=== PATIENT | male | born 1975 | race Caucasian/White ===

== ENCOUNTER 2016-10-07 00:24 | Inpatient (IN) | payer SELFPAY ==
[2016-10-07] VITALS (11 sets, daily range): BP systolic 102–147; BP diastolic 60–94; PULSE 65–86; RESP 16–24; TEMP 96.5–98.3; O2SAT 94–100
[~2016-10-07] VITALS: Ht 177.8 cm; Wt 80.0 kg
[2016-10-07] MEDS ORDERED: SODIUM CHLOR 0.9% 1000 ML INJ 1,000 ML IV SCH (01:14)
[2016-10-07] MEDS ORDERED: SODIUM CHLORIDE 0.9% FLUSH 5 ML FLUSH IVF PRN (01:15)
[2016-10-07] MEDS ORDERED: HYDROmorphone HCL PF 1 MG/ML VIAL IVS ONE (01:15)
[2016-10-07] MEDS ORDERED: ONDANSETRON HCL 4 MG/2 ML VIAL IVP ONE (01:15)
[2016-10-07] MEDS ORDERED: IOHEXOL 350 MG/ML 10 ML VIAL (for RAD DIAG) IV ONE (01:30)
[2016-10-07 01:37] LABS: AUTOMATED NEUTROPHIL # 7.4 TH/MM3 (1.8-7.7); BASOPHIL % 0.3 % (0.0-2.0); EOSINOPHIL % 0.5 % (0.0-4.0); HEMATOCRIT 46.7 % (39.0-51.0); HEMO FLAGS DIFF FINAL; LYMPH % 11.2 % (9.0-44.0); MEAN CELL VOLUME 87.4 FL (80.0-100.0); MEAN CORPUSCULAR HEMOGLOBIN 31.2 PG (27.0-34.0); MEAN CORPUSCULAR HGB CONC 35.6 % (32.0-36.0); MONO % 6.2 % (0.0-8.0); NEUT % 81.8 % (16.0-70.0); PLATELET COUNT 256 TH/MM3 (150-450); RED BLOOD COUNT 5.35 MIL/MM3 (4.50-5.90); RED CELL DISTRIBUTION WIDTH 12.8 % (11.6-17.2); WHITE BLOOD COUNT 9.1 TH/MM3 (4.0-11.0)
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
[2016-10-07 01:47] LABS: PROTHROMBIN TIME - PATIENT 10.7 SEC (9.8-11.6)
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
[2016-10-07 02:06] LABS: ALT (GPT) 50 U/L (12-78); ANION GAP 9 MEQ/L (5-15); AST (GOT) 33 U/L (15-37); BICARBONATE 25.9 MEQ/L (21.0-32.0); BLOOD UREA NITROGEN 15 MG/DL (7-18); CHLORIDE 102 MEQ/L (98-107); GLOMERULAR FILTRATION RATE 74 ML/MIN (>89); POTASSIUM 3.9 MEQ/L (3.5-5.1); SODIUM (NA) 137 MEQ/L (136-145)
[2016-10-07 02:08] LABS: ALKALINE PHOSPHATASE 94 U/L (45-117); TOTAL BILIRUBIN ADULT 1.1 MG/DL (0.2-1.0)
[2016-10-07] MEDS ORDERED: HYDROmorphone HCL PF 1 MG/ML VIAL IV PUSH ONE (03:00)
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
[2016-10-07] MEDS: SODIUM CHLOR 0.9% 1000 ML INJ 1,000 ML IV SCH ×3 (03:27→23:16)
[2016-10-07] MEDS ORDERED: SODIUM CHLORIDE 0.9% FLUSH 5 ML FLUSH FLUSH PRN (03:30)
[2016-10-07] MEDS ORDERED: HYDROmorphone HCL PF 1 MG/ML VIAL IV PUSH PRN (03:30)
[2016-10-07] MEDS ORDERED: NALOXONE HCL 0.4 MG/ML AMP IV PRN (03:30)
[2016-10-07] MEDS: ONDANSETRON HCL 4 MG/2 ML VIAL IVP PRN ×2 (04:59→14:04)
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
[2016-10-07 05:15] LABS: BLOOD, URINE NEG (NEG); COMMENT (UR) CULT NOT INDICATED; CULTURE IF INDICATED CULT NOT INDICATED; GLUCOSE,URINE NEG (NEG); KETONE, URINE 40 mg/dL (NEG); MUCUS URINE FEW /lpf (OCC); NITRITE,URINE NEG (NEG); SQUAMOUS EPITHELIAL CELL URINE <1 /hpf (0-5); URINE COLOR YELLOW (YELLW/STRAW)
[2016-10-07] MEDS: HYDROmorphone HCL PF 1 MG/ML VIAL IV PUSH PRN ×2 (05:16→06:15)
--- NOTE | 2016-10-07 08:40 | HHI.PR ---
Subjective Remarks NG tube is in place. complaining of moderate to severe abdominal pain. has nausea. d/w the RN. Objective Vitals Vital Signs Date Time Temp Pulse Resp B/P Pulse Ox O2 Delivery O2 Flow Rate FiO2 10/07/16 07:15 72 18 120/70 99 10/07/16 06:05 70 20 137/86 98 Room Air 10/07/16 04:37 98.3 79 18 126/73 98 Room Air 10/07/16 03:02 81 20 142/82 98 Room Air 10/07/16 02:04 98 Room Air 10/07/16 01:04 73 24 134/94 100 Room Air 10/07/16 00:28 97.5 86 18 147/84 100 Room Air I/O 10/06/16 10/06/16 10/06/16 10/07/16 10/07/16 10/07/16 07:00 15:00 23:00 07:00 15:00 23:00 Output Total 1200 ml Balance -1200 ml Output Urine Total 450 ml Gastric Drainage Total 750 ml # Voids 1 Result Diagram: 10/07/16 0120 10/07/16 0120 Imaging Last Impressions Chest X-Ray 10/07/16113 Signed Impressions: Service Date/Time: Friday, October 07, 2016 01:13 - CONCLUSION: No acute disease. No free air beneath the diaphragm. Ravinder Seo MD Abdomen/Pelvis CT 10/07/16113 Signed Impressions: Service Date/Time: Friday, October 07, 2016 01:29 - CONCLUSION: Findings are characteristic of a small bowel obstruction. Ravinder Seo MD Objective Remarks GENERAL: in no apparent distress with NG tube in place. CARDIOVASCULAR: Regular rate and regular rhythm without murmurs, gallops, or rubs. RESPIRATORY: Clear to auscultation. Breath sounds equal bilaterally. No wheezes , rales, or rhonchi. GASTROINTESTINAL: Abdomen soft, generalized tenderness, nondistended. Normal, active bowel sounds MUSCULOSKELETAL: Extremities without clubbing, cyanosis, or edema. NEURO: Alert & Oriented x4 to person, place, time, situation. Moves all ext x4 Procedures none Medications and IVs Current Medications Ondansetron HCl 4 mg 4 mg ONCE ONCE IVP Last administered on 10/07/16t 01:27; Start 10/07/16 at 01:15; Stop 10/07/16 at 01:16; Status DC Sodium Chloride (NS 1000 ml Inj) 1,000 ml @ 1,000 mls/hr Q1H IV Last administered on 10/07/16 01:27; Start 10/07/16 at 01:14; Stop 10/07/16 at 02:13 ; Status DC IV Flush (NS Flush) 2 ml UNSCH PRN IVF FLUSH AFTER USING IV ACCESS; Start 10/07 at 01:15; Stop 10/07/16 at 03:23; Status DC Hydromorphone HCl (Dilaudid Pf Inj) 1 mg ONCE ONCE IVS Last administered on 01:27; Start 10/07/16 at 01:15; Stop 10/07/16 at 01:16; Status DC Iohexol (Omnipaque 350 Inj) 90 ml STK-MED ONCE IV Last administered on 01:30; Start 10/07/16 at 01:30; Stop 10/07/16 at 01:32; Status DC Hydromorphone HCl 1 mg 1 mg ONCE ONCE IV PUSH Last administered on 10/07/16 03:01; Start 10/07/16 at 03:00; Stop 10/07/16 at 03:01; Status DC Sodium Chloride (NS 1000 ml Inj) 1,000 ml @ 100 mls/hr Q10H IV Last administered on 10/07/16 03:27; Start 10/07/16 at 03:16 IV Flush (NS Flush) 2 ml UNSCH PRN FLUSH FLUSH AFTER USING IV ACCESS; Start at 03:30 IV Flush (NS Flush) 2 ml BID FLUSH ; Start 10/07/16 at 09:00 Ondansetron HCl (Zofran Inj) 4 mg Q6H PRN IVP NAUSEA OR VOMITING Last administered on 10/07/16 04:59; Start 10/07/16 at 03:30 Enoxaparin Sodium (Lovenox Inj) 40 mg Q24H SQ ; Start 10/07/16 at 09:00 Naloxone HCl (Narcan Inj) 0.4 mg UNSCH PRN IV SEE LABEL COMMENTS; Start at 03:30 Hydromorphone HCl (Dilaudid Pf Inj) 0.2 mg Q4H PRN IV PUSH pain >5 Last administered on 10/07/16t 04:59; Start 10/07/16 at 03:30; Stop 10/07/16 at 05:05 ; Status DC Hydromorphone HCl (Dilaudid Pf Inj) 1 mg Q3HR PRN IV PUSH pain >5 Last administered on 10/07/16t 06:15; Start 10/07/16 at 05:10 A/P Assessment and Plan A/P Small bowel obstruction - NPO -continue IV fluid -pain control and antiemetics as needed -NG tube in place -surgery consulted Mild hypercalcemia - Calcium 10.2 - Recheck BMP in a.m. and follow trends and calcium levels DVT prophylaxis - Lovenox 40 mg subcutaneous every 24 hours Terrie Disla MD Oct 07, 2016 08:39
[2016-10-07] MEDS ORDERED: PROMETHAZINE INJ 25 MG/ML VIAL IM ONE (09:00)
[2016-10-07] MEDS: ENOXAPARIN SODIUM 40 MG/0.4 ML SYRINGE SQ SCH (09:49)
[2016-10-07] MEDS: MORPHINE SULFATE 4 MG/ML INJ IV PUSH PRN ×5 (09:49→23:06)
[2016-10-07] MEDS: SODIUM CHLORIDE 0.9% FLUSH 5 ML FLUSH FLUSH SCH ×2 (09:50→20:04)
[2016-10-07] MEDS ORDERED: LACTULOSE SYRUP 20 GM/30 ML CUP NG ONE (17:45)
[2016-10-08] VITALS: BP 119/72; PULSE 79; RESP 16; TEMP 99.4; O2SAT 95
[2016-10-08] MEDS: ACETAMINOPHEN 325 MG TAB PO PRN ×3 (02:35→19:16)
[2016-10-08] MEDS: MORPHINE SULFATE 4 MG/ML INJ IV PUSH PRN ×7 (02:35→20:41)
[2016-10-08 04:00] VITALS: BP 115/70; PULSE 74; RESP 16; TEMP 96.3; O2SAT 96
[2016-10-08] MEDS: SODIUM CHLORIDE 0.9% FLUSH 5 ML FLUSH FLUSH SCH ×2 (07:05→20:40)
[2016-10-08 08:00] VITALS: BP 129/72; PULSE 59; RESP 20; TEMP 97.6; O2SAT 97
--- NOTE | 2016-10-08 08:03 | HHI.PR ---
Subjective Remarks in no acute distress. NG tube in place. abdominal pain and nausea is better. no BM. Objective Vitals Vital Signs Date Time Temp Pulse Resp B/P Pulse Ox O2 Delivery O2 Flow Rate FiO2 10/08/16 06:00 16 10/08/16 04:00 96.3 74 16 115/70 96 10/08/16 03:16 17 10/08/16 00:00 99.4 79 16 119/72 95 10/07/16 20:00 97.2 84 17 128/72 94 10/07/16 16:00 96.7 65 16 131/84 99 10/07/16 13:10 96.5 70 16 135/85 99 10/07/16 12:34 86 20 102/60 98 I/O 10/07/16 10/07/16 10/07/16 10/08/16 10/08/16 10/08/16 07:00 15:00 23:00 07:00 15:00 23:00 Intake Total 200 ml 0 ml 844 ml Output Total 1200 ml 200 ml 800 ml Balance -1200 ml 200 ml -200 ml 44 ml Intake Oral 0 ml IV Total 200 ml 844 ml Output Urine Total 450 ml 300 ml Gastric Drainage Total 750 ml 200 ml 500 ml # Voids 1 2 Result Diagram: 10/07/160 10/07/16 012 Imaging Last Impressions Chest X-Ray 10/07/16113 Signed Impressions: Service Date/Time: Friday, October 07, 2016 01:13 - CONCLUSION: No acute disease. No free air beneath the diaphragm. Ravinder Seo MD Abdomen/Pelvis CT 10/07/16113 Signed Impressions: Service Date/Time: Friday, October 07, 2016 01:29 - CONCLUSION: Findings are characteristic of a small bowel obstruction. Ravinder Seo MD Objective Remarks GENERAL: in no apparent distress with NG tube in place. CARDIOVASCULAR: Regular rate and regular rhythm without murmurs, gallops, or rubs. RESPIRATORY: Clear to auscultation. Breath sounds equal bilaterally. No wheezes , rales, or rhonchi. GASTROINTESTINAL: Abdomen soft, generalized tenderness seems to be improving, nondistended. Normal, active bowel sounds MUSCULOSKELETAL: Extremities without clubbing, cyanosis, or edema. NEURO: Alert & Oriented x4 to person, place, time, situation. Moves all ext x4 Procedures none Medications and IVs Current Medications Ondansetron HCl 4 mg 4 mg ONCE ONCE IVP Last administered on 10/07/16 01:27; Start 10/07/16 at 01:15; Stop 10/07/16 at 01:16; Status DC Sodium Chloride (NS 1000 ml Inj) 1,000 ml @ 1,000 mls/hr Q1H IV Last administered on 10/07/16 01:27; Start 10/07/16 at 01:14; Stop 10/07/16 at 02:13 ; Status DC IV Flush (NS Flush) 2 ml UNSCH PRN IVF FLUSH AFTER USING IV ACCESS; Start 10/07 at 01:15; Stop 10/07/16 at 03:23; Status DC Hydromorphone HCl (Dilaudid Pf Inj) 1 mg ONCE ONCE IVS Last administered on 01:27; Start 10/07/16 at 01:15; Stop 10/07/16 at 01:16; Status DC Iohexol (Omnipaque 350 Inj) 90 ml STK-MED ONCE IV Last administered on 01:30; Start 10/07/16 at 01:30; Stop 10/07/16 at 01:32; Status DC Hydromorphone HCl 1 mg 1 mg ONCE ONCE IV PUSH Last administered on 10/07/16 03:01; Start 10/07/16 at 03:00; Stop 10/07/16 at 03:01; Status DC Sodium Chloride (NS 1000 ml Inj) 1,000 ml @ 100 mls/hr Q10H IV Last administered on 10/07/16 14:04; Start 10/07/16 at 03:16 IV Flush (NS Flush) 2 ml UNSCH PRN FLUSH FLUSH AFTER USING IV ACCESS; Start at 03:30 IV Flush (NS Flush) 2 ml BID FLUSH Last administered on 10/07/16 20:04; Start 10/07/16 at 09:00 Ondansetron HCl (Zofran Inj) 4 mg Q6H PRN IVP NAUSEA OR VOMITING Last administered on 10/07/16 14:04; Start 10/07/16 at 03:30 Enoxaparin Sodium (Lovenox Inj) 40 mg Q24H SQ Last administered on 10/07/16 09 :49; Start 10/07/16 at 09:00 Naloxone HCl (Narcan Inj) 0.4 mg UNSCH PRN IV SEE LABEL COMMENTS; Start at 03:30 Hydromorphone HCl (Dilaudid Pf Inj) 0.2 mg Q4H PRN IV PUSH pain >5 Last administered on 10/07/16 04:59; Start 10/07/16 at 03:30; Stop 10/07/16 at 05:05 ; Status DC Hydromorphone HCl (Dilaudid Pf Inj) 1 mg Q3HR PRN IV PUSH pain >5 Last administered on 10/07/16 06:15; Start 10/07/16 at 05:10; Stop 10/07/16 at 08:41 ; Status DC Morphine Sulfate (Morphine Inj) 4 mg Q3H PRN IV PUSH PAIN >5 Last administered on 10/08/16 05:40; Start 10/07/16 at 09:00 Promethazine HCl (Phenergan Inj) 12.5 mg ONCE ONCE IM Last administered on 09:49; Start 10/07/16 at 09:00; Stop 10/07/16 at 09:01; Status DC Lactulose (Lactulose Liq) 30 ml ONCE ONCE NG Last administered on 10/07/16 17 :45; Start 10/07/16 at 17:45; Stop 10/07/16 at 17:46; Status DC Acetaminophen (Tylenol) 650 mg Q6H PRN PO headache Last administered on 02:35; Start 10/08/16 at 02:00 A/P Assessment and Plan A/P Small bowel obstruction - NPO -continue IV fluid -pain control and antiemetics as needed -NG tube in place -surgery following. Mild hypercalcemia - Calcium 10.2 - will monitor DVT prophylaxis - Lovenox 40 mg subcutaneous every 24 hours Terrie Disla MD Oct 08, 2016 08:03
[2016-10-08] MEDS: SODIUM CHLOR 0.9% 1000 ML INJ 1,000 ML IV SCH (08:28)
[2016-10-08] MEDS: ENOXAPARIN SODIUM 40 MG/0.4 ML SYRINGE SQ SCH (08:32)
[2016-10-08 09:05] LABS: BASOPHIL % 0.3 % (0.0-2.0); EOSINOPHIL # 0.1 TH/MM3 (0-0.4); EOSINOPHIL % 0.9 % (0.0-4.0); HEMATOCRIT 39.1 % (39.0-51.0); HEMO FLAGS DIFF FINAL; LYMPH % 19.8 % (9.0-44.0); LYMPHOCYTE # 1.1 TH/MM3 (1.0-4.8); MEAN CELL VOLUME 87.7 FL (80.0-100.0); MEAN CORPUSCULAR HEMOGLOBIN 31.3 PG (27.0-34.0); MEAN CORPUSCULAR HGB CONC 35.7 % (32.0-36.0); MONO % 8.3 % (0.0-8.0); NEUT % 70.7 % (16.0-70.0); PLATELET COUNT 199 TH/MM3 (150-450); RED BLOOD COUNT 4.46 MIL/MM3 (4.50-5.90); RED CELL DISTRIBUTION WIDTH 12.8 % (11.6-17.2); WHITE BLOOD COUNT 5.7 TH/MM3 (4.0-11.0)
[2016-10-08 09:31] LABS: BICARBONATE 24.3 MEQ/L (21.0-32.0); POTASSIUM 3.7 MEQ/L (3.5-5.1)
[2016-10-08] MEDS: DEXT 5%-NACL 0.9% 1000 ML INJ 1,000 ML IV SCH ×2 (11:30→20:41)
[2016-10-08 11:50] VITALS: BP 139/78; PULSE 56; RESP 20; TEMP 97.2; O2SAT 97
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
[2016-10-08] MEDS ORDERED: PHENOL 1.4% SOLN 180 ML BTL OROPHARYNG PRN (13:00)
[2016-10-08 15:50] VITALS: BP 133/79; PULSE 56; RESP 20; TEMP 97.3; O2SAT 97
--- NOTE | 2016-10-08 16:36 | HHI.PR ---
Subjective Subjective Notes Still painful Sore throat from NG tube Objective Vitals/I&O Vital Signs Date Time Temp Pulse Resp B/P Pulse Ox O2 Delivery O2 Flow Rate FiO2 10/08/16 15:50 97.3 56 20 133/79 97 10/07/16 06:05 Room Air Labs Laboratory Tests Test 10/08/16 08:48 White Blood Count 5.7 Red Blood Count 4.46 Hemoglobin 14.0 Hematocrit 39.1 Mean Corpuscular Volume 87.7 Mean Corpuscular Hemoglobin 31.3 Mean Corpuscular Hemoglobin 35.7 Concent Red Cell Distribution Width 12.8 Platelet Count 199 Mean Platelet Volume 7.8 Neutrophils (%) (Auto) 70.7 Lymphocytes (%) (Auto) 19.8 Monocytes (%) (Auto) 8.3 Eosinophils (%) (Auto) 0.9 Basophils (%) (Auto) 0.3 Neutrophils # (Auto) 4.0 Lymphocytes # (Auto) 1.1 Monocytes # (Auto) 0.5 Eosinophils # (Auto) 0.1 Basophils # (Auto) 0.0 CBC Comment DIFF FINAL Differential Comment Sodium Level 139 Potassium Level 3.7 Chloride Level 106 Carbon Dioxide Level 24.3 Anion Gap 9 Blood Urea Nitrogen 14 Creatinine 0.85 Estimat Glomerular Filtration 98 Rate Random Glucose 73 Calcium Level 8.0 Radiology Last 24 hours Impressions Abdomen X-Ray 10/08/16 0000 Signed Impressions: Service Date/Time: Saturday, October 08, 2016 12:08 - CONCLUSION: The bowel gas pattern is within normal limits. Carmelo Harley MD Lungs: Clear Abdomen: Non-distended, Other (diffusely moderately tender) Narrative Exam Minimal flatus; no BM A/P Assessment and Plan Assessment: SBO; better on KUB today Electrolytes OK NG output 700/200/500ml over 8 hr shifts Plan: Continue NG to suction today May try trial clamping in AM Cortes Jacinto MD Oct 08, 2016 16:35
[2016-10-08 20:00] VITALS: BP 117/70; PULSE 60; RESP 18; TEMP 97.5; O2SAT 97
[2016-10-08] MEDS ORDERED: diphenhydrAMINE HCL 50 MG/ML VIAL IV PUSH ONE (23:00)
[2016-10-09] VITALS: BP 141/83; PULSE 57; RESP 18; TEMP 97.6; O2SAT 98
[2016-10-09] MEDS: MORPHINE SULFATE 4 MG/ML INJ IV PUSH PRN ×7 (00:06→21:22)
[2016-10-09 04:00] VITALS: BP 136/75; PULSE 65; RESP 18; TEMP 97.4; O2SAT 97
[2016-10-09] MEDS: DEXT 5%-NACL 0.9% 1000 ML INJ 1,000 ML IV SCH ×2 (07:07→16:00)
[2016-10-09 07:50] VITALS: BP 133/83; PULSE 60; RESP 20; TEMP 95.9; O2SAT 97
[2016-10-09] MEDS: SODIUM CHLORIDE 0.9% FLUSH 5 ML FLUSH FLUSH SCH ×2 (07:58→20:01)
[2016-10-09 08:13] LABS: BICARBONATE 31.7 MEQ/L (21.0-32.0)
[2016-10-09] MEDS: ENOXAPARIN SODIUM 40 MG/0.4 ML SYRINGE SQ SCH (09:00)
[2016-10-09] MEDS: ACETAMINOPHEN 325 MG TAB PO PRN ×2 (10:04→20:01)
[2016-10-09 11:30] VITALS: BP 123/94; PULSE 66; RESP 20; TEMP 97.8; O2SAT 96
--- NOTE | 2016-10-09 11:39 | HHI.PR ---
Subjective Remarks complaining of epigastric pain. no nausea. NG tube in place. d/w the RN. Objective Vitals Vital Signs Date Time Temp Pulse Resp B/P Pulse Ox O2 Delivery O2 Flow Rate FiO2 10/09/16 07:50 95.9 60 20 133/83 97 10/09/16 04:00 97.4 65 18 136/75 97 10/09/16 00:00 97.6 57 18 141/83 98 10/08/16 20:00 97.5 60 18 117/70 97 10/08/16 15:50 97.3 56 20 133/79 97 10/08/16 11:58 18 10/08/16 11:50 97.2 56 20 139/78 97 I/O 10/08/16 10/08/16 10/08/16 10/09/16 10/09/16 10/09/16 07:00 15:00 23:00 07:00 15:00 23:00 Intake Total 844 ml 800 ml 50 ml Output Total 800 ml 800 ml 300 ml 800 ml Balance 44 ml 0 ml -300 ml -750 ml Intake Oral 0 ml 50 ml IV Total 844 ml 800 ml Output Urine Total 300 ml 300 ml 800 ml Gastric Drainage Total 500 ml 500 ml 300 ml # Bowel Movements 0 Result Diagram: 10/08/16 0848 10/09/16 0729 Imaging Last Impressions Abdomen X-Ray 10/08/16 0000 Signed Impressions: Service Date/Time: Saturday, October 08, 2016 12:08 - CONCLUSION: The bowel gas pattern is within normal limits. Carmelo Harley MD Chest X-Ray 10/07/164 Signed Impressions: Service Date/Time: Friday, October 07, 2016 01:13 - CONCLUSION: No acute disease. No free air beneath the diaphragm. Ravinder Seo MD Abdomen/Pelvis CT 10/07/16 0114 Signed Impressions: Service Date/Time: Friday, October 07, 2016 01:29 - CONCLUSION: Findings are characteristic of a small bowel obstruction. Ravinder Seo MD Objective Remarks GENERAL: in no apparent distress with NG tube in place. CARDIOVASCULAR: Regular rate and regular rhythm without murmurs, gallops, or rubs. RESPIRATORY: Clear to auscultation. Breath sounds equal bilaterally. No wheezes , rales, or rhonchi. GASTROINTESTINAL: Abdomen soft, generalized tenderness seems to be improving, nondistended. Normal, active bowel sounds MUSCULOSKELETAL: Extremities without clubbing, cyanosis, or edema. NEURO: Alert & Oriented x4 to person, place, time, situation. Moves all ext x4 Procedures none Medications and IVs Current Medications Ondansetron HCl 4 mg 4 mg ONCE ONCE IVP Last administered on 10/07/16 01:27; Start 10/07/16 at 01:15; Stop 10/07/16 at 01:16; Status DC Sodium Chloride (NS 1000 ml Inj) 1,000 ml @ 1,000 mls/hr Q1H IV Last administered on 10/07/16 01:27; Start 10/07/16 at 01:14; Stop 10/07/16 at 02:13 ; Status DC IV Flush (NS Flush) 2 ml UNSCH PRN IVF FLUSH AFTER USING IV ACCESS; Start 10/07 at 01:15; Stop 10/07/16 at 03:23; Status DC Hydromorphone HCl (Dilaudid Pf Inj) 1 mg ONCE ONCE IVS Last administered on 01:27; Start 10/07/16 at 01:15; Stop 10/07/16 at 01:16; Status DC Iohexol (Omnipaque 350 Inj) 90 ml STK-MED ONCE IV Last administered on 01:30; Start 10/07/16 at 01:30; Stop 10/07/16 at 01:32; Status DC Hydromorphone HCl 1 mg 1 mg ONCE ONCE IV PUSH Last administered on 10/07/16 03:01; Start 10/07/16 at 03:00; Stop 10/07/16 at 03:01; Status DC Sodium Chloride (NS 1000 ml Inj) 1,000 ml @ 100 mls/hr Q10H IV Last administered on 10/08/16 08:28; Start 10/07/16 at 03:16; Stop 10/08/16 at 09:54 ; Status DC IV Flush (NS Flush) 2 ml UNSCH PRN FLUSH FLUSH AFTER USING IV ACCESS; Start at 03:30 IV Flush (NS Flush) 2 ml BID FLUSH Last administered on 10/07/16 20:04; Start 10/07/16 at 09:00 Ondansetron HCl (Zofran Inj) 4 mg Q6H PRN IVP NAUSEA OR VOMITING Last administered on 10/07/16 14:04; Start 10/07/16 at 03:30 Enoxaparin Sodium (Lovenox Inj) 40 mg Q24H SQ Last administered on 10/07/16 09 :49; Start 10/07/16 at 09:00 Naloxone HCl (Narcan Inj) 0.4 mg UNSCH PRN IV SEE LABEL COMMENTS; Start at 03:30 Hydromorphone HCl (Dilaudid Pf Inj) 0.2 mg Q4H PRN IV PUSH pain >5 Last administered on 10/07/16 04:59; Start 10/07/16 at 03:30; Stop 10/07/16 at 05:05 ; Status DC Hydromorphone HCl (Dilaudid Pf Inj) 1 mg Q3HR PRN IV PUSH pain >5 Last administered on 10/07/16 06:15; Start 10/07/16 at 05:10; Stop 10/07/16 at 08:41 ; Status DC Morphine Sulfate (Morphine Inj) 4 mg Q3H PRN IV PUSH PAIN >5 Last administered on 10/09/16 10:00; Start 10/07/16 at 09:00 Promethazine HCl (Phenergan Inj) 12.5 mg ONCE ONCE IM Last administered on 09:49; Start 10/07/16 at 09:00; Stop 10/07/16 at 09:01; Status DC Lactulose (Lactulose Liq) 30 ml ONCE ONCE NG Last administered on 10/07/16 17 :45; Start 10/07/16 at 17:45; Stop 10/07/16 at 17:46; Status DC Acetaminophen 650 mg 650 mg Q6H PRN PO headache Last administered on 10/09/16 10:04; Start 10/08/16 at 02:00 Dextrose/Sodium Chloride (D5W-NS 1000 ml Inj) 1,000 ml @ 100 mls/hr Q10H IV Last administered on 10/09/16 07:07; Start 10/08/16 at 10:00 Phenol (Chloraseptic [place]) 2 spray Q2H PRN OROPHARYNG sore throat Last administered on 10/08/16 14:40; Start 10/08/16 at 13:00 Diphenhydramine HCl (Benadryl Inj) 50 mg ONCE ONCE IV PUSH Last administered on 10/08/16 23:11; Start 10/08/16 at 23:00; Stop 10/08/16 at 23:01; Status DC A/P Assessment and Plan A/P Small bowel obstruction - NPO -continue IV fluid -pain control and antiemetics as needed -NG tube in place -surgery following. Mild hypercalcemia -resolved - will monitor DVT prophylaxis - Lovenox 40 mg subcutaneous every 24 hours Terrie Disla MD Oct 09, 2016 11:39
[2016-10-09] MEDS: PANTOPRAZOLE SODIUM 40 MG VIAL IV PUSH SCH (12:10)
[2016-10-09 15:50] VITALS: BP 127/92; PULSE 61; RESP 20; TEMP 98.8; O2SAT 98
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
[2016-10-09 20:00] VITALS: BP 115/72; PULSE 65; RESP 17; TEMP 97.9; O2SAT 97
[2016-10-10] MEDS: MORPHINE SULFATE 4 MG/ML INJ IV PUSH PRN ×7 (02:11→21:43)
[2016-10-10] MEDS: DEXT 5%-NACL 0.9% 1000 ML INJ 1,000 ML IV SCH ×3 (02:12→21:21)
[2016-10-10 02:16] VITALS: BP 135/85; PULSE 60; RESP 18; TEMP 97.6; O2SAT 99
[2016-10-10 04:00] VITALS: BP 120/80; PULSE 62; RESP 18; TEMP 98.2; O2SAT 97
[2016-10-10 08:00] VITALS: BP 112/75; PULSE 52; RESP 16; TEMP 97.1; O2SAT 98
--- NOTE | 2016-10-10 08:50 | HHI.PR ---
Subjective Remarks in no acute distress. NG tube in place. could tolerate the full liquid. still with some abdominal pain. passing gas- no BM. Objective Vitals Vital Signs Date Time Temp Pulse Resp B/P Pulse Ox O2 Delivery O2 Flow Rate FiO2 10/10/16 04:00 98.2 62 18 120/80 97 10/10/16 02:16 97.6 60 18 135/85 99 10/09/16 20:00 97.9 65 17 115/72 97 10/09/16 15:50 98.8 61 20 127/92 98 10/09/16 11:30 97.8 66 20 123/94 96 I/O 10/09/16 10/09/16 10/09/16 10/10/16 10/10/16 10/10/16 07:00 15:00 23:00 07:00 15:00 23:00 Intake Total 50 ml 1321 ml Output Total 800 ml 800 ml 900 ml Balance -750 ml 521 ml -900 ml Intake Oral 50 ml 240 ml IV Total 1081 ml Output Urine Total 800 ml 600 ml 900 ml Gastric Drainage Total 200 ml # Bowel Movements 0 Result Diagram: 10/08/16 0848 10/09/16 0729 Imaging Last Impressions Abdomen X-Ray 10/08/16 0000 Signed Impressions: Service Date/Time: Saturday, October 08, 2016 12:08 - CONCLUSION: The bowel gas pattern is within normal limits. Carmelo Harley MD Chest X-Ray 10/07/164 Signed Impressions: Service Date/Time: Friday, October 07, 2016 01:13 - CONCLUSION: No acute disease. No free air beneath the diaphragm. Ravinder Seo MD Abdomen/Pelvis CT 10/07/16 0114 Signed Impressions: Service Date/Time: Friday, October 07, 2016 01:29 - CONCLUSION: Findings are characteristic of a small bowel obstruction. Ravinder Seo MD Objective Remarks GENERAL: in no apparent distress with NG tube in place. CARDIOVASCULAR: Regular rate and regular rhythm without murmurs, gallops, or rubs. RESPIRATORY: Clear to auscultation. Breath sounds equal bilaterally. No wheezes , rales, or rhonchi. GASTROINTESTINAL: Abdomen soft, generalized tenderness seems to be improving, nondistended. Normal, active bowel sounds MUSCULOSKELETAL: Extremities without clubbing, cyanosis, or edema. NEURO: Alert & Oriented x4 to person, place, time, situation. Moves all ext x4 Procedures none Medications and IVs Current Medications Ondansetron HCl 4 mg 4 mg ONCE ONCE IVP Last administered on 10/07/16 01:27; Start 10/07/16 at 01:15; Stop 10/07/16 at 01:16; Status DC Sodium Chloride (NS 1000 ml Inj) 1,000 ml @ 1,000 mls/hr Q1H IV Last administered on 10/07/16 01:27; Start 10/07/16 at 01:14; Stop 10/07/16 at 02:13 ; Status DC IV Flush (NS Flush) 2 ml UNSCH PRN IVF FLUSH AFTER USING IV ACCESS; Start 10/07 at 01:15; Stop 10/07/16 at 03:23; Status DC Hydromorphone HCl (Dilaudid Pf Inj) 1 mg ONCE ONCE IVS Last administered on 01:27; Start 10/07/16 at 01:15; Stop 10/07/16 at 01:16; Status DC Iohexol (Omnipaque 350 Inj) 90 ml STK-MED ONCE IV Last administered on 01:30; Start 10/07/16 at 01:30; Stop 10/07/16 at 01:32; Status DC Hydromorphone HCl 1 mg 1 mg ONCE ONCE IV PUSH Last administered on 10/07/16 03:01; Start 10/07/16 at 03:00; Stop 10/07/16 at 03:01; Status DC Sodium Chloride (NS 1000 ml Inj) 1,000 ml @ 100 mls/hr Q10H IV Last administered on 10/08/16 08:28; Start 10/07/16 at 03:16; Stop 10/08/16 at 09:54 ; Status DC IV Flush (NS Flush) 2 ml UNSCH PRN FLUSH FLUSH AFTER USING IV ACCESS; Start at 03:30 IV Flush (NS Flush) 2 ml BID FLUSH Last administered on 10/07/16 20:04; Start 10/07/16 at 09:00 Ondansetron HCl (Zofran Inj) 4 mg Q6H PRN IVP NAUSEA OR VOMITING Last administered on 10/07/16 14:04; Start 10/07/16 at 03:30 Enoxaparin Sodium (Lovenox Inj) 40 mg Q24H SQ Last administered on 10/07/16 09 :49; Start 10/07/16 at 09:00 Naloxone HCl (Narcan Inj) 0.4 mg UNSCH PRN IV SEE LABEL COMMENTS; Start at 03:30 Hydromorphone HCl (Dilaudid Pf Inj) 0.2 mg Q4H PRN IV PUSH pain >5 Last administered on 10/07/16 04:59; Start 10/07/16 at 03:30; Stop 10/07/16 at 05:05 ; Status DC Hydromorphone HCl (Dilaudid Pf Inj) 1 mg Q3HR PRN IV PUSH pain >5 Last administered on 10/07/16 06:15; Start 10/07/16 at 05:10; Stop 10/07/16 at 08:41 ; Status DC Morphine Sulfate (Morphine Inj) 4 mg Q3H PRN IV PUSH PAIN >5 Last administered on 10/10/16 08:14; Start 10/07/16 at 09:00 Promethazine HCl (Phenergan Inj) 12.5 mg ONCE ONCE IM Last administered on 09:49; Start 10/07/16 at 09:00; Stop 10/07/16 at 09:01; Status DC Lactulose (Lactulose Liq) 30 ml ONCE ONCE NG Last administered on 10/07/16 17 :45; Start 10/07/16 at 17:45; Stop 10/07/16 at 17:46; Status DC Acetaminophen 650 mg 650 mg Q6H PRN PO headache Last administered on 10/09/16 20:01; Start 10/08/16 at 02:00 Dextrose/Sodium Chloride (D5W-NS 1000 ml Inj) 1,000 ml @ 100 mls/hr Q10H IV Last administered on 10/10/16 02:12; Start 10/08/16 at 10:00 Phenol (Chloraseptic [place]) 2 spray Q2H PRN OROPHARYNG sore throat Last administered on 10/08/16 14:40; Start 10/08/16 at 13:00 Diphenhydramine HCl (Benadryl Inj) 50 mg ONCE ONCE IV PUSH Last administered on 10/08/16 23:11; Start 10/08/16 at 23:00; Stop 10/08/16 at 23:01; Status DC Pantoprazole Sodium (Protonix Inj) 40 mg Q24H IV PUSH Last administered on 10/09 12:10; Start 10/09/16 at 11:45 A/P Assessment and Plan A/P Small bowel obstruction - on liquid diet -continue IV fluid -pain control and antiemetics as needed -NG tube in place -surgery following. Mild hypercalcemia -resolved - will monitor DVT prophylaxis - Lovenox 40 mg subcutaneous every 24 hours Discharge Planning when ok with surgery. Terrie Disla MD Oct 10, 2016 08:50
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
[2016-10-10] MEDS: PANTOPRAZOLE SODIUM 40 MG VIAL IV PUSH SCH (11:12)
[2016-10-10] MEDS: ENOXAPARIN SODIUM 40 MG/0.4 ML SYRINGE SQ SCH (11:12)
[2016-10-10] MEDS: SODIUM CHLORIDE 0.9% FLUSH 5 ML FLUSH FLUSH SCH ×2 (11:12→21:00)
[2016-10-10] MEDS ORDERED: DIATRIZOATE MEGLUM/DIATRIZOATE SOD 120 ML BTL (for RAD DIAG) NG ONE (13:00)
[2016-10-10] MEDS ORDERED: DIATRIZOATE MEGLUM/DIATRIZOATE SOD 120 ML BTL (for RAD DIAG) PO ONE (14:30)
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
--- NOTE | 2016-10-10 15:52 | HHI.PR ---
Subjective Subjective Notes Has nausea any time the NGT is clamped Reports no gas or BM Objective Vitals/I&O Vital Signs Date Time Temp Pulse Resp B/P Pulse Ox O2 Delivery O2 Flow Rate FiO2 10/10/16 08:00 97.1 52 16 112/75 98 10/07/16 06:05 Room [facility] Radiology Last Impressions Abdomen X-Ray 10/08/16 0000 Signed Impressions: Service Date/Time: Saturday, October 08, 2016 12:08 - CONCLUSION: The bowel gas pattern is within normal limits. Carmelo Harley MD Chest X-Ray 10/07/16 0114 Signed Impressions: Service Date/Time: Friday, October 07, 2016 01:13 - CONCLUSION: No acute disease. No free air beneath the diaphragm. Ravinder Seo MD Abdomen/Pelvis CT 10/07/16 0114 Signed Impressions: Service Date/Time: Friday, October 07, 2016 01:29 - CONCLUSION: Findings are characteristic of a small bowel obstruction. Ravinder Seo MD Last 24 hours Impressions Abdomen X-Ray 10/08/16 0000 Signed Impressions: Service Date/Time: Saturday, October 08, 2016 12:08 - CONCLUSION: The bowel gas pattern is within normal limits. Carmelo Harley MD Cardiovascular: Regular Lungs: Clear Abdomen: Other (mildly tender) Extremities: No edema Narrative Exam NGT in to LIWS A/P Problem List: (1) Small bowel obstruction Assessment and Plan 41 year old male with SBO -KUB shows no change -Plan for SBFT -NPO -NGT to LIWS Attending Statement The exam, history, and the medical decision-making described in the above note were completed with the assistance of the mid-level provider. I reviewed and agree with the findings presented. I attest that I had a [id number] encounter with the patient on the same day, and personally performed and documented my assessment and findings in the medical record. Abdominal exam non-surgical, increased bs, no peritonitis Nathaly Guerra Oct 10, 2016 15:51 Ajay Tristan MD Nov 06, 2016 00:27
[2016-10-10 16:00] VITALS: BP 113/69; PULSE 64; RESP 18; TEMP 96.3; O2SAT 97
[2016-10-10] MEDS: ACETAMINOPHEN 325 MG TAB PO PRN (17:30)
[2016-10-10 20:00] VITALS: BP 106/56; PULSE 68; RESP 15; TEMP 98; O2SAT 96
[2016-10-10] MEDS ORDERED: TEMAZEPAM 7.5 MG CAP PO ONE (20:30)
[2016-10-11 00:30] VITALS: BP 126/68; PULSE 77; RESP 16; TEMP 97.8; O2SAT 95
[2016-10-11] MEDS: MORPHINE SULFATE 4 MG/ML INJ IV PUSH PRN ×8 (00:41→22:08)
[2016-10-11 03:17] VITALS: BP 121/74; PULSE 55; RESP 15; TEMP 97.6; O2SAT 96
[2016-10-11] MEDS: DEXT 5%-NACL 0.9% 1000 ML INJ 1,000 ML IV SCH ×2 (03:31→13:02)
[2016-10-11 08:00] VITALS: BP 131/71; PULSE 56; RESP 18; TEMP 97.5; O2SAT 97
--- NOTE | 2016-10-11 08:42 | HHI.PR ---
Subjective Remarks overall doing better. abdominal pain is better. no nausea or vomiting. had a BM yesterday. NG tube in place. Objective Vitals Vital Signs Date Time Temp Pulse Resp B/P Pulse Ox O2 Delivery O2 Flow Rate FiO2 10/11/16 03:17 97.6 55 15 121/74 96 10/11/16 00:30 97.8 77 16 126/68 95 10/10/16 20:00 98.0 68 15 106/56 96 10/10/16 16:00 96.3 64 18 113/69 97 I/O 10/10/16 10/10/16 10/10/16 10/11/16 10/11/16 10/11/16 07:00 15:00 23:00 07:00 15:00 23:00 Intake Total 840 ml 240 ml 800 ml Output Total 900 ml 360 ml Balance -900 ml 480 ml 240 ml 800 ml Intake Oral 840 ml 240 ml IV Total 800 ml Output Urine Total 900 ml 360 ml # Voids 2 Result Diagram: 10/08/16 0848 10/09/16 0729 Imaging Last Impressions Small Bowel X-Ray 10/10/16 0000 Signed Impressions: Service Date/Time: Monday, October 10, 2016 12:59 - CONCLUSION: Unremarkable small bowel examination. Héctor Simental MD Abdomen X-Ray 10/10/16 0000 Signed Impressions: Service Date/Time: Monday, October 10, 2016 09:30 - CONCLUSION: Bowel gas pattern improved nonspecific without evidence of residual obstruction. Nasogastric tube in the stomach Héctor Simental MD Chest X-Ray 10/07/16 0114 Signed Impressions: Service Date/Time: Friday, October 07, 2016 01:13 - CONCLUSION: No acute disease. No free air beneath the diaphragm. Ravinder Seo MD Abdomen/Pelvis CT 10/07/16 0114 Signed Impressions: Service Date/Time: Friday, October 07, 2016 01:29 - CONCLUSION: Findings are characteristic of a small bowel obstruction. Ravinder Seo MD Objective Remarks GENERAL: in no apparent distress with NG tube in place. CARDIOVASCULAR: Regular rate and regular rhythm without murmurs, gallops, or rubs. RESPIRATORY: Clear to auscultation. Breath sounds equal bilaterally. No wheezes , rales, or rhonchi. GASTROINTESTINAL: Abdomen soft, generalized tenderness seems to be improving, nondistended. Normal, active bowel sounds MUSCULOSKELETAL: Extremities without clubbing, cyanosis, or edema. NEURO: Alert & Oriented x4 to person, place, time, situation. Moves all ext x4 Procedures none Medications and IVs Current Medications Ondansetron HCl 4 mg 4 mg ONCE ONCE IVP Last administered on 10/07/16 01:27; Start 10/07/16 at 01:15; Stop 10/07/16 at 01:16; Status DC Sodium Chloride (NS 1000 ml Inj) 1,000 ml @ 1,000 mls/hr Q1H IV Last administered on 10/07/16 01:27; Start 10/07/16 at 01:14; Stop 10/07/16 at 02:13 ; Status DC IV Flush (NS Flush) 2 ml UNSCH PRN IVF FLUSH AFTER USING IV ACCESS; Start 10/07 at 01:15; Stop 10/07/16 at 03:23; Status DC Hydromorphone HCl (Dilaudid Pf Inj) 1 mg ONCE ONCE IVS Last administered on 01:27; Start 10/07/16 at 01:15; Stop 10/07/16 at 01:16; Status DC Iohexol (Omnipaque 350 Inj) 90 ml STK-MED ONCE IV Last administered on 01:30; Start 10/07/16 at 01:30; Stop 10/07/16 at 01:32; Status DC Hydromorphone HCl 1 mg 1 mg ONCE ONCE IV PUSH Last administered on 10/07/16 03:01; Start 10/07/16 at 03:00; Stop 10/07/16 at 03:01; Status DC Sodium Chloride (NS 1000 ml Inj) 1,000 ml @ 100 mls/hr Q10H IV Last administered on 10/08/16 08:28; Start 10/07/16 at 03:16; Stop 10/08/16 at 09:54 ; Status DC IV Flush (NS Flush) 2 ml UNSCH PRN FLUSH FLUSH AFTER USING IV ACCESS; Start at 03:30 IV Flush (NS Flush) 2 ml BID FLUSH Last administered on 10/10/16 11:12; Start 10/07/16 at 09:00 Ondansetron HCl (Zofran Inj) 4 mg Q6H PRN IVP NAUSEA OR VOMITING Last administered on 10/07/16 14:04; Start 10/07/16 at 03:30 Enoxaparin Sodium (Lovenox Inj) 40 mg Q24H SQ Last administered on 10/10/16 11 :12; Start 10/07/16 at 09:00 Naloxone HCl (Narcan Inj) 0.4 mg UNSCH PRN IV SEE LABEL COMMENTS; Start at 03:30 Hydromorphone HCl (Dilaudid Pf Inj) 0.2 mg Q4H PRN IV PUSH pain >5 Last administered on 10/07/16 04:59; Start 10/07/16 at 03:30; Stop 10/07/16 at 05:05 ; Status DC Hydromorphone HCl (Dilaudid Pf Inj) 1 mg Q3HR PRN IV PUSH pain >5 Last administered on 10/07/16 06:15; Start 10/07/16 at 05:10; Stop 10/07/16 at 08:41 ; Status DC Morphine Sulfate (Morphine Inj) 4 mg Q3H PRN IV PUSH PAIN >5 Last administered on 10/11/16 06:29; Start 10/07/16 at 09:00 Promethazine HCl (Phenergan Inj) 12.5 mg ONCE ONCE IM Last administered on 09:49; Start 10/07/16 at 09:00; Stop 10/07/16 at 09:01; Status DC Lactulose (Lactulose Liq) 30 ml ONCE ONCE NG Last administered on 10/07/16 17 :45; Start 10/07/16 at 17:45; Stop 10/07/16 at 17:46; Status DC Acetaminophen 650 mg 650 mg Q6H PRN PO headache Last administered on 10/10/16 17:30; Start 10/08/16 at 02:00 Dextrose/Sodium Chloride (D5W-NS 1000 ml Inj) 1,000 ml @ 100 mls/hr Q10H IV Last administered on 10/11/16 03:31; Start 10/08/16 at 10:00 Phenol (Chloraseptic Victor) 2 spray Q2H PRN OROPHARYNG sore throat Last administered on 10/08/16 14:40; Start 10/08/16 at 13:00 Diphenhydramine HCl (Benadryl Inj) 50 mg ONCE ONCE IV PUSH Last administered on 10/08/16 23:11; Start 10/08/16 at 23:00; Stop 10/08/16 at 23:01; Status DC Pantoprazole Sodium (Protonix Inj) 40 mg Q24H IV PUSH Last administered on 10/10 11:12; Start 10/09/16 at 11:45 Diatrizoate Meglum/ Diatrizoate Sod ( Gastroview Liq) 120 ml STK-MED ONCE NG Last administered on 10/10/16 13:00; Start 10/10/16 at 13:00; Stop 10/10/16 at 13:28; Status DC Diatrizoate Meglum/ Diatrizoate Sod ( Gastroradha Liq) 240 ml STK-MED ONCE PO ; Start 10/10/16 at 14:30; Stop 10/10/16 at 15:27; Status DC Temazepam (Restoril) 7.5 mg ONCE ONCE PO Last administered on 10/10/16 21:20 ; Start 10/10/16 at 20:30; Stop 10/10/16 at 20:31; Status DC A/P Assessment and Plan A/P Small bowel obstruction - on liquid diet -continue IV fluid -pain control and antiemetics as needed -NG tube in place -SBFT unremarkable -surgery following. Mild hypercalcemia -resolved - will monitor DVT prophylaxis - Lovenox 40 mg subcutaneous every 24 hours Discharge Planning when ok with surgery. Terrie Disla MD Oct 11, 2016 08:42
[2016-10-11] MEDS: ENOXAPARIN SODIUM 40 MG/0.4 ML SYRINGE SQ SCH (09:46)
[2016-10-11] MEDS: SODIUM CHLORIDE 0.9% FLUSH 5 ML FLUSH FLUSH SCH ×2 (09:46→20:32)
--- NOTE | 2016-10-11 10:43 | HHI.PR ---
Subjective Subjective Notes Resting in bed Reports several BMs yesterday Objective Vitals/I&O Vital Signs Date Time Temp Pulse Resp B/P Pulse Ox O2 Delivery O2 Flow Rate FiO2 10/11/16 08:00 97.5 56 18 131/71 97 Radiology Last Impressions Abdomen X-Ray 10/08/16 0000 Signed Impressions: Service Date/Time: Saturday, October 08, 2016 12:08 - CONCLUSION: The bowel gas pattern is within normal limits. Carmelo Harley MD Chest X-Ray 10/07/16 011 Signed Impressions: Service Date/Time: Friday, October 07, 2016 01:13 - CONCLUSION: No acute disease. No free air beneath the diaphragm. Ravinder Seo MD Abdomen/Pelvis CT 10/07/16113 Signed Impressions: Service Date/Time: Friday, October 07, 2016 01:29 - CONCLUSION: Findings are characteristic of a small bowel obstruction. Ravinder Seo MD Last 24 hours Impressions Abdomen X-Ray 10/08/16 0000 Signed Impressions: Service Date/Time: Saturday, October 08, 2016 12:08 - CONCLUSION: The bowel gas pattern is within normal limits. Carmelo Harley MD Cardiovascular: Regular Lungs: Clear Abdomen: Non-distended, Non-tender Narrative Exam NGT clamped A/P Problem List: (1) Small bowel obstruction Assessment and Plan 41 year old male with SBO -KUB shows no change -SBFT shows no obstruction -Check residuals from NGT---if less than 200 cc please DC NGT -Start liquid diet if NGT removed Attending Statement The exam, history, and the medical decision-making described in the above note were completed with the assistance of the mid-level provider. I reviewed and agree with the findings presented. I attest that I had a [id number] encounter with the patient on the same day, and personally performed and documented my assessment and findings in the medical record. Abdominal exam non-surgical, no focal tenderness continue non-op mgmt Nathaly Guerra Oct 11, 2016 10:43 Ajay Tristan MD Nov 06, 2016 00:28
[2016-10-11 12:00] VITALS: BP 120/76; PULSE 55; RESP 16; TEMP 97.8; O2SAT 97
[2016-10-11] MEDS: PANTOPRAZOLE SODIUM 40 MG VIAL IV PUSH SCH (12:56)
[2016-10-11 16:00] VITALS: BP 107/66; PULSE 65; RESP 18; TEMP 96.2; O2SAT 97
[2016-10-11 20:00] VITALS: BP 105/61; PULSE 55; RESP 16; TEMP 97.1; O2SAT 97
[2016-10-11] MEDS ORDERED: TEMAZEPAM 7.5 MG CAP PO PRN (21:00)
[2016-10-12] VITALS: BP 100/59; PULSE 56; RESP 16; TEMP 96.3; O2SAT 98
[2016-10-12] MEDS: DEXT 5%-NACL 0.9% 1000 ML INJ 1,000 ML IV SCH (04:52)
[2016-10-12] MEDS: MORPHINE SULFATE 4 MG/ML INJ IV PUSH PRN ×2 (04:52→08:13)
[2016-10-12 05:00] VITALS: BP 114/71; PULSE 59; RESP 16; TEMP 96; O2SAT 97
--- NOTE | 2016-10-12 07:36 | HHI.PR ---
Subjective Remarks NG tube has been removed. abdominal pain has almost resolved. no nausea or vomiting or any other new complaints. Objective Vitals Vital Signs Date Time Temp Pulse Resp B/P Pulse Ox O2 Delivery O2 Flow Rate FiO2 10/12/16 05:00 96.0 59 16 114/71 97 10/12/16 00:00 96.3 56 16 100/59 98 10/11/16 20:00 97.1 55 16 105/61 97 10/11/16 16:00 96.2 65 18 107/66 97 10/11/16 12:00 97.8 55 16 120/76 97 10/11/16 08:00 97.5 56 18 131/71 97 I/O 10/11/16 10/11/16 10/11/16 10/12/16 10/12/16 10/12/16 07:00 15:00 23:00 07:00 15:00 23:00 Intake Total 800 ml 943 ml 1800 ml 1750 ml Output Total 50 ml Balance 800 ml 893 ml 1800 ml 1750 ml Intake Oral 1800 ml IV Total 800 ml 943 ml 1750 ml Gastric Drainage Total 50 ml # Voids 6 1 Result Diagram: 10/08/16 0848 10/09/16 0729 Imaging Last Impressions Small Bowel X-Ray 10/10/16 0000 Signed Impressions: Service Date/Time: Monday, October 10, 2016 12:59 - CONCLUSION: Unremarkable small bowel examination. Héctor Simental MD Abdomen X-Ray 10/10/16 0000 Signed Impressions: Service Date/Time: Monday, October 10, 2016 09:30 - CONCLUSION: Bowel gas pattern improved nonspecific without evidence of residual obstruction. Nasogastric tube in the stomach Héctor Simental MD Chest X-Ray 10/07/16 0114 Signed Impressions: Service Date/Time: Friday, October 07, 2016 01:13 - CONCLUSION: No acute disease. No free air beneath the diaphragm. Ravinder Seo MD Abdomen/Pelvis CT 10/07/16 0114 Signed Impressions: Service Date/Time: Friday, October 07, 2016 01:29 - CONCLUSION: Findings are characteristic of a small bowel obstruction. Ravinder Seo MD Objective Remarks GENERAL: in no apparent distress with NG tube in place. CARDIOVASCULAR: Regular rate and regular rhythm without murmurs, gallops, or rubs. RESPIRATORY: Clear to auscultation. Breath sounds equal bilaterally. No wheezes , rales, or rhonchi. GASTROINTESTINAL: Abdomen soft, no tenderness, nondistended. Normal, active bowel sounds MUSCULOSKELETAL: Extremities without clubbing, cyanosis, or edema. NEURO: Alert & Oriented x4 to person, place, time, situation. Moves all ext x4 Procedures none Medications and IVs Current Medications Ondansetron HCl 4 mg 4 mg ONCE ONCE IVP Last administered on 10/07/16 01:27; Start 10/07/16 at 01:15; Stop 10/07/16 at 01:16; Status DC Sodium Chloride (NS 1000 ml Inj) 1,000 ml @ 1,000 mls/hr Q1H IV Last administered on 10/07/16 01:27; Start 10/07/16 at 01:14; Stop 10/07/16 at 02:13 ; Status DC IV Flush (NS Flush) 2 ml UNSCH PRN IVF FLUSH AFTER USING IV ACCESS; Start 10/07 at 01:15; Stop 10/07/16 at 03:23; Status DC Hydromorphone HCl (Dilaudid Pf Inj) 1 mg ONCE ONCE IVS Last administered on 01:27; Start 10/07/16 at 01:15; Stop 10/07/16 at 01:16; Status DC Iohexol (Omnipaque 350 Inj) 90 ml STK-MED ONCE IV Last administered on 01:30; Start 10/07/16 at 01:30; Stop 10/07/16 at 01:32; Status DC Hydromorphone HCl 1 mg 1 mg ONCE ONCE IV PUSH Last administered on 10/07/16 03:01; Start 10/07/16 at 03:00; Stop 10/07/16 at 03:01; Status DC Sodium Chloride (NS 1000 ml Inj) 1,000 ml @ 100 mls/hr Q10H IV Last administered on 10/08/16 08:28; Start 10/07/16 at 03:16; Stop 10/08/16 at 09:54 ; Status DC IV Flush (NS Flush) 2 ml UNSCH PRN FLUSH FLUSH AFTER USING IV ACCESS; Start at 03:30 IV Flush (NS Flush) 2 ml BID FLUSH Last administered on 10/11/16 09:46; Start 10/07/16 at 09:00 Ondansetron HCl (Zofran Inj) 4 mg Q6H PRN IVP NAUSEA OR VOMITING Last administered on 10/07/16 14:04; Start 10/07/16 at 03:30 Enoxaparin Sodium (Lovenox Inj) 40 mg Q24H SQ Last administered on 10/11/16 09 :46; Start 10/07/16 at 09:00 Naloxone HCl (Narcan Inj) 0.4 mg UNSCH PRN IV SEE LABEL COMMENTS; Start at 03:30 Hydromorphone HCl (Dilaudid Pf Inj) 0.2 mg Q4H PRN IV PUSH pain >5 Last administered on 10/07/16 04:59; Start 10/07/16 at 03:30; Stop 10/07/16 at 05:05 ; Status DC Hydromorphone HCl (Dilaudid Pf Inj) 1 mg Q3HR PRN IV PUSH pain >5 Last administered on 10/07/16 06:15; Start 10/07/16 at 05:10; Stop 10/07/16 at 08:41 ; Status DC Morphine Sulfate (Morphine Inj) 4 mg Q3H PRN IV PUSH PAIN >5 Last administered on 10/12/16 04:52; Start 10/07/16 at 09:00 Promethazine HCl (Phenergan Inj) 12.5 mg ONCE ONCE IM Last administered on 09:49; Start 10/07/16 at 09:00; Stop 10/07/16 at 09:01; Status DC Lactulose (Lactulose Liq) 30 ml ONCE ONCE NG Last administered on 10/07/16 17 :45; Start 10/07/16 at 17:45; Stop 10/07/16 at 17:46; Status DC Acetaminophen 650 mg 650 mg Q6H PRN PO headache Last administered on 10/10/16 17:30; Start 10/08/16 at 02:00 Dextrose/Sodium Chloride (D5W-NS 1000 ml Inj) 1,000 ml @ 100 mls/hr Q10H IV Last administered on 10/12/16 04:52; Start 10/08/16 at 10:00 Phenol (Chloraseptic Larue) 2 spray Q2H PRN OROPHARYNG sore throat Last administered on 10/08/16 14:40; Start 10/08/16 at 13:00 Diphenhydramine HCl (Benadryl Inj) 50 mg ONCE ONCE IV PUSH Last administered on 10/08/16 23:11; Start 10/08/16 at 23:00; Stop 10/08/16 at 23:01; Status DC Pantoprazole Sodium (Protonix Inj) 40 mg Q24H IV PUSH Last administered on 10/11 12:56; Start 10/09/16 at 11:45 Diatrizoate Meglum/ Diatrizoate Sod ( Gastroview Liq) 120 ml STK-MED ONCE NG Last administered on 10/10/16 13:00; Start 10/10/16 at 13:00; Stop 10/10/16 at 13:28; Status DC Diatrizoate Meglum/ Diatrizoate Sod ( Gastroradha Liq) 240 ml STK-MED ONCE PO ; Start 10/10/16 at 14:30; Stop 10/10/16 at 15:27; Status DC Temazepam (Restoril) 7.5 mg ONCE ONCE PO Last administered on 10/10/16 21:20 ; Start 10/10/16 at 20:30; Stop 10/10/16 at 20:31; Status DC Temazepam (Restoril) 7.5 mg HS PRN PO insomnia Last administered on 10/11/16 22:09; Start 10/11/16 at 21:00 A/P Assessment and Plan A/P Small bowel obstruction-resolved - on liquid diet; will advance the diet if ok with surgery -continue IV fluid -pain control and antiemetics as needed -SBFT unremarkable -surgery following. Mild hypercalcemia -resolved - will monitor DVT prophylaxis - Lovenox 40 mg subcutaneous every 24 hours Discharge Planning hopefully dc home soon when ok with surgery. f/u; pcp upon discharge. see med list. d/w the patient. Terrie Disla MD Oct 12, 2016 07:35
--- NOTE | 2016-10-12 07:36 | HHI.DCPOC ---
Discharge Care Plan Diagnosis: (1) Small bowel obstruction Your Health Problems Are: Irregular Bowel Function Goals to Promote Your Health * To prevent worsening of your condition and complications * To maintain your health at the optimal level Directions to Meet Your Goals Take your medications as prescribed Follow your dietary instruction Follow activity as directed Keep your appointments as scheduled Take your immunizations and boosters as scheduled If your symptoms worsen call your PCP, if no PCP go to Urgent Care Center or Emergency Room Smoking is Dangerous to Your Health. Avoid second hand smoke Call the 24-hour hour crisis hotline for domestic abuse at Terrie Disla MD Oct 12, 2016 07:36
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
[2016-10-12 08:00] VITALS: BP 119/72; PULSE 59; RESP 18; TEMP 97.4; O2SAT 97
[2016-10-12] MEDS: SODIUM CHLORIDE 0.9% FLUSH 5 ML FLUSH FLUSH SCH (08:13)
[2016-10-12] MEDS: ENOXAPARIN SODIUM 40 MG/0.4 ML SYRINGE SQ SCH (08:13)
--- NOTE | 2016-10-12 10:05 | HHI.PR ---
Subjective Subjective Notes Resting in bed Ate yogurt for breakfast Wants more to eat Objective Vitals/I&O Vital Signs Date Time Temp Pulse Resp B/P Pulse Ox O2 Delivery O2 Flow Rate FiO2 10/12/16 08:00 97.4 59 18 119/72 97 Radiology Last Impressions Abdomen X-Ray 10/08/16 0000 Signed Impressions: Service Date/Time: Saturday, October 08, 2016 12:08 - CONCLUSION: The bowel gas pattern is within normal limits. Carmelo Harley MD Chest X-Ray 10/07/16 011 Signed Impressions: Service Date/Time: Friday, October 07, 2016 01:13 - CONCLUSION: No acute disease. No free air beneath the diaphragm. Ravinder Seo MD Abdomen/Pelvis CT 10/07/16113 Signed Impressions: Service Date/Time: Friday, October 07, 2016 01:29 - CONCLUSION: Findings are characteristic of a small bowel obstruction. Ravinder Seo MD Last 24 hours Impressions Abdomen X-Ray 10/08/16 0000 Signed Impressions: Service Date/Time: Saturday, October 08, 2016 12:08 - CONCLUSION: The bowel gas pattern is within normal limits. Carmelo Harley MD Cardiovascular: Regular Lungs: Clear Abdomen: Non-distended, Non-tender Extremities: No edema Narrative Exam NGT removed A/P Problem List: (1) Small bowel obstruction Assessment and Plan 41 year old male with SBO -Tolerated fulls---advance to regular diet -Counseled on foods to avoid -If tolerates regular diet for lunch---okay to DC -Follow up with Dr. Tristan PRN -Discussed with RN Rouse at bedside Attending Statement The exam, history, and the medical decision-making described in the above note were completed with the assistance of the mid-level provider. I reviewed and agree with the findings presented. I attest that I had a [id number] encounter with the patient on the same day, and personally performed and documented my assessment and findings in the medical record. Abdominal exam non-surgical, +BM ok for DC and f/u with me PRN Nathaly Guerra Oct 12, 2016 10:05 Ajay Tristan MD Nov 06, 2016 00:30
[2016-10-12 12:00] VITALS: BP 115/70; PULSE 55; RESP 16; TEMP 97.6; O2SAT 97
[2016-10-12] MEDS: PANTOPRAZOLE SODIUM 40 MG VIAL IV PUSH SCH (12:18)
== END 2016-10-12 14:47 | disposition home or self-care (01) | DRG 390 ==
LOC: NEPE 00:24 → NEDA 03:41 → NEDH 08:05 → HOCB 12:57
PROVIDERS: ADMIT Internal Medicine; ATTEND Internal Medicine
DX: K56.5 Intestinal adhesions [bands] with obstruction (postinfection) (principal); E83.52 Hypercalcemia; Z90.49 Acquired absence of other specified parts of digestive tract
CPT/HCPCS: 43753; 71010; 74000; 74177; 74250; 80048; 80053; 81001; 82948; 83605; 83690; 85025; 85610; 96361; 96374; 96375; 96376; C9113; J1170; J1200; J1650; J2270; J2405; J2550; J7030; J7042; Q9963; Q9967